=== PATIENT | female | born 1990 | race Caucasian/White ===

== ENCOUNTER 2019-12-06 10:53 | Emergency (ER) | payer OTHER ==
[~2019-12-06] VITALS: Ht 165.1 cm; Wt 72.8 kg
[2019-12-06 12:15] LABS: BASO % 1 % (0-3); EOS # 0.1 x10^3/uL (0.0-0.7); EOS % 1 % (0-3); HEMATOCRIT 41.1 % (36.0-47.0); HEMOGLOBIN 13.8 g/dL (12.0-15.5); LYMPH # 2.2 x10^3/uL (1.0-4.8); LYMPH % 29 % (24-48); MEAN CORPUSCULAR HEMOGLOBIN 30 pg (25-35); MEAN CORPUSCULAR HGB CONC 34 g/dL (31-37); MEAN CORPUSCULAR VOLUME 88 fL (79-100); MONO # 0.5 x10^3/uL (0.0-1.1); MONO % 7 % (0-9); NEUT # 4.8 x10^3/uL (1.8-7.7); NEUT % 63 % (31-73); PLATELET COUNT 274 x10^3/uL (140-400); RED BLOOD COUNT 4.65 x10^6/uL (3.50-5.40); RED CELL DISTRIBUTION WIDTH 13.3 % (11.5-14.5); WHITE BLOOD COUNT 7.6 x10^3/uL (4.0-11.0)
[2019-12-06 12:22] LABS: BILIRUBIN,URINE NEGATIVE (NEG); CLARITY,URINE CLEAR; COLOR,URINE YELLOW; NITRITE,URINE NEGATIVE (NEG); PH,URINE 6.5; PROTEIN,URINE NEGATIVE (NEG-TRACE)
[2019-12-06 12:24] LABS: CALCIUM 9.4 mg/dL (8.5-10.1); CREATININE 0.7 mg/dL (0.6-1.0); GFR 100.4; POTASSIUM 4.1 mmol/L (3.5-5.1)
[2019-12-06 12:29] LABS: PROTHROMBIN TIME PATIENT 13.3 SEC (11.7-14.0)
[2019-12-06 12:31] LABS: ALBUMIN/GLOBULIN RATIO 1.3 (1.0-1.7); TOTAL BILIRUBIN 0.7 mg/dL (0.2-1.0); TOTAL PROTEIN 7.2 g/dL (6.4-8.2)
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
[2019-12-06 12:42] LABS: BACTERIA,URINE 0 /HPF (0-FEW); SQUAMOUS EPITHELIAL CELL,UR OCC /LPF; WBC,URINE 0 /HPF (0-4)
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
[2019-12-06] MEDS: ONDANSETRON PF 4 MG/2 ML VIAL. IV ONE (13:20)
[2019-12-06] MEDS: MORPHINE SULFATE 2 MG/ML VIAL. IV/SQ PRN (13:20)
[2019-12-06 13:24] VITALS: BP 111/73
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
[2019-12-06 14:10] LABS: BARBITURATES NEG (NEG); BENZODIAZEPINES NEG (NEG); CANNABINOIDS POS (NEG); COCAINE NEG (NEG); METHADONE NEG (NEG); OPIATES NEG (NEG); PHENCYCLIDINE NEG (NEG)
[2019-12-06 14:12] LABS: AMPHETAMINE/METHAMPHETAMINE NEG (NEG)
== END 2019-12-06 14:11 | disposition home or self-care (01) ==
LOC: ER 10:53
DX: S13.4XXA Sprain of ligaments of cervical spine, initial encounter (principal); M25.552 Pain in left hip; M79.604 Pain in right leg; Z90.89 Acquired absence of other organs; Z98.890 Other specified postprocedural states; V89.2XXA Person injured in unspecified motor-vehicle accident, traffic, initial encounter; Y93.89 Activity, other specified; Y92.413 State road as the place of occurrence of the external cause; Y99.8 Other external cause status
CPT/HCPCS: 36415; 70450; 71046; 72125; 72128; 72131; 73521; 73552; 73590; 73630; 80053; 80307; 81001; 81025; 85025; 85610; 85730; 86850; 86900; 86901; 99285; G0480

== ENCOUNTER 2021-05-07 22:28 | Observation (INO) | payer OTHER ==
[~2021-05-07] VITALS: Ht 165.1 cm; Wt 88.6 kg
[2021-05-07 23:43] LABS: BILIRUBIN,URINE NEGATIVE (NEG); CLARITY,URINE CLEAR; COLOR,URINE YELLOW; NITRITE,URINE NEGATIVE (NEG); PROTEIN,URINE NEGATIVE (NEG-TRACE)
[2021-05-07] MEDS ORDERED: CONTRAST GIVEN. MC PRN (23:45)
[2021-05-07 23:51] LABS: BACTERIA,URINE FEW /HPF (0-FEW)
[2021-05-08 00:05] LABS: BASO # 0.1 x10^3/uL (0.0-0.2); BASO % 0 % (0-3); EOS # 0.1 x10^3/uL (0.0-0.7); EOS % 1 % (0-3); HEMATOCRIT 39.6 % (36.0-47.0); HEMOGLOBIN 13.7 g/dL (12.0-15.5); LYMPH # 1.8 x10^3/uL (1.0-4.8); LYMPH % 10 % (24-48); MEAN CORPUSCULAR HEMOGLOBIN 29 pg (25-35); MEAN CORPUSCULAR HGB CONC 35 g/dL (31-37); MEAN CORPUSCULAR VOLUME 83 fL (79-100); MONO # 0.8 x10^3/uL (0.0-1.1); MONO % 5 % (0-9); NEUT # 14.4 x10^3/uL (1.8-7.7); NEUT % 84 % (31-73); PLATELET COUNT 316 x10^3/uL (140-400); RED BLOOD COUNT 4.76 x10^6/uL (3.50-5.40); RED CELL DISTRIBUTION WIDTH 13.4 % (11.5-14.5); WHITE BLOOD COUNT 17.2 x10^3/uL (4.0-11.0)
--- NOTE | 2021-05-08 00:06 | PHYS DOC ---
Past Medical History Past Medical History: No Pertinent History Past Surgical History: , Tonsillectomy, Other Additional Past Surgical Histo: adenoidectomy Smoking Status: Never Smoker Alcohol Use: None General Adult EDM: Chief Complaint: ABDOMINAL PAIN HPI: HPI: Patient is a 30 year old female presents with a chief complaint of right sided abdominal pain. Patient states abdominal pain started this evening. Pain located in the right lower quadrant. Patient rates the pain an 8 out of 10. She has associated nausea but has not vomited. Patient is on Depo. Review of Systems: Review of Systems: Review of systems: Constitutional symptoms- No fever, no chills. Eyes- No Discharge, No Visual Loss Respiratory symptoms- No shortness of breath, No wheezing, No Dyspnea on Exertion Cardiovascular Systems; No chest pain, No Palpitations, No syncope Gastrointestinal symptoms: Positive abdominal pain, Positive nausea, no vomiting or diarrhea. Genitourinary symptoms: No dysuria. Musculoskeletal symptoms: No back pain No extremity pain. NEUROLOGICAL Symptoms: No headache, no generalized weakness; No focal Weakness Skin: No rash. Heart Score: C/O Chest Pain: N/A Risk Factors: Risk Factors: DM, Current or recent (<one month) smoker, HTN, HLP, family history of CAD, obesity. Risk Scores: Score 0 - 3: 2.5% MACE over next 6 weeks - Discharge Home Score 4 - 6: 20.3% MACE over next 6 weeks - Admit for Clinical Observation Score 7 - 10: 72.7% MACE over next 6 weeks - Early Invasive Strategies Current Medications: Current Medications Medications (Trade) Dose Ordered Sig/Amber Start Time Stop Time Status Last Admin Dose Admin Info (CONTRAST GIVEN -- Rx MONITORING) 1 each PRN DAILY PRN 05/07/21 23:45 05/09/21 23:44 Iohexol (Omnipaque 300 Mg/ml) 75 ml 1X ONCE 05/08/21 00:00 05/08/21 00:01 DC Ondansetron HCl (Zofran) 4 mg 1X ONCE 05/08/21 00:30 05/08/21 00:31 Sodium Chloride 1,000 ml @ 1,000 mls/hr 1X ONCE 05/08/21 00:30 05/08/21 01:29 Allergies: Allergies: Allergies Coded Allergies Type Severity Reaction Last Updated Verified hydrocodone Allergy Intermediate Hives 05/07/21 Yes Physical Exam: PE: General: alert, no acute distress. Skin: warm, dry and intact. HENT: bilateral external ears normal, oropharynx moist, nose normal. Head:: Normocephalic, atraumatic. Neck: Trachea midline. Eyes: EOMI, Normal conjunctiva, No drainage CARDIOVASCULAR: Regular rate and rhythm RESPIRATORY: No respiratory distress Back: Full range of motion. Skin: Warm, dry, no erythema, no rash. MUSCULOSKELETAL: Full range of motion of bilateral upper and lower extremities. GASTROINTESTINAL: Abdomen soft Eddie palpation right lower quadrant NEUROLOGICAL: Alert and noted to person, place and time. No neurological deficits observed Psychiatric: Cooperative. Normal judgment Current Patient Data: Labs: Laboratory Tests Test 05/07/21 22:59 Urine Collection Type Unknown Urine Color Yellow Urine Clarity Clear Urine pH 6.0 (<5.0-8.0) Urine Specific [place] >=1.030 (1.000-1.030) Urine Protein Negative mg/dL (NEG-TRACE) Urine Glucose (UA) Negative mg/dL (NEG) Urine Ketones (Stick) Trace mg/dL (NEG) Urine Blood Moderate (NEG) Urine Nitrite Negative (NEG) Urine Bilirubin Negative (NEG) Urine Urobilinogen Dipstick 1.0 mg/dL (0.2 mg/dL) Urine Leukocyte Esterase Negative (NEG) Urine RBC 3-5 /HPF (0-2) Urine WBC 1-4 /HPF (0-4) Urine Squamous Epithelial Cells Many /LPF Urine Bacteria Few /HPF (0-FEW) Urine Mucus Marked /LPF POC Urine HCG, Qualitative Hcg negative (Negative) Vital Signs: Vital Signs Date Time Temp Pulse Resp B/P (MAP) Pulse Ox O2 Delivery O2 Flow Rate FiO2 05/07/21 22:45 98.9 83 20 146/84 (86) 99 Room Air 98.9 EKG: EKG: [] Radiology/Procedures: Radiology/Procedures: []COMPARISON: None. TECHNIQUE: Axial CT images obtained through the abdomen and pelvis with contrast . One or more of the following individualized dose reduction techniques were utilized for this examination: 1. Automated exposure control; 2. Adjustment of the mA and/or kV according to patient size; 3. Use of iterative reconstruction technique. FINDINGS: abdominal aorta is not aneurysmal. No intrahepatic bile duct dilation. Liver prominent in size. No peripancreatic fluid collection. No perisplenic hemorrhage. No hydronephrosis. Urinary bladder is has minimal urine within it at time of exam. Uterus is visualized. Appendix measures approximately 6-7 mm. Definite adjacent inflammatory changes not seen. No dilated loops of bowel to suggest obstruction. Degenerative changes spine. IMPRESSION: * No evidence of bowel obstruction. * The appendix is mildly dilated but there is not definitive adjacent inflamma tory changes at this time. Given the lack of definitive inflammatory changes this does not fulfill all of the CT criteria for appendicitis. Would still correlate with symptoms and lab markers in the region given this dilatation to exclude early appendicitis prior to the development of definitive inflammatory changes. If unclear clinically and further workup options are desired a follow- up CT could BE obtained at a later time to assess for development of inflammation or further increase in size. Course & Med Decision Making: Course & Med Decision Making Pertinent Labs and Imaging studies reviewed. (See chart for details) [] Patient was evaluated for chief complaint. Work-up consisted of laboratory analysis and radiologic imaging. Results reviewed and discussed with patient and family. Patient noted to have elevated white blood cell count- >17. CT imaging performed shows a dilated appendix without secondary signs of acute appendicitis--- early appendicitis not excluded. Plan to start patient on antibiotics. Admit to hospitalist with surgery consult. Tosha Disclaimer: Tosha Disclaimer: This electronic medical record was generated, in whole or in part, using a voice recognition dictation system. Departure Departure Impression: Primary Impression: Abdominal pain Disposition: HOME / SELF CARE / HOMELESS Condition: STABLE Referrals: NAS RICHARDSON (PCP) CHEYANNE SANTANA DO May 08, 2021 00:06
[2021-05-08 00:15] LABS: CALCIUM 9.3 mg/dL (8.5-10.1); CREATININE 0.8 mg/dL (0.6-1.0); GFR 85.4; POTASSIUM 3.3 mmol/L (3.5-5.1)
[2021-05-08 00:21] LABS: ALBUMIN 3.8 g/dL (3.4-5.0); TOTAL BILIRUBIN 0.5 mg/dL (0.2-1.0); TOTAL PROTEIN 7.6 g/dL (6.4-8.2)
[2021-05-08 00:28] LABS: % BANDS 1 % (0-9); % EOS 1 % (0-5); % LYMPHS 10 % (24-48); % MONOS 2 % (0-10); % SEGS 86 % (35-66); PLT ESTIMATE ADEQUATE (ADEQUATE)
[2021-05-08] MEDS ORDERED: IV NORMAL SALINE 1000ML BAG 1,000 ML IV ONE (00:30)
[2021-05-08] MEDS ORDERED: ONDANSETRON PF 4 MG/2 ML VIAL. IVP ONE (00:30)
[2021-05-08] MEDS ORDERED: KETOROLAC 30 MG/ML VIAL. ONE (00:32)
[2021-05-08] MEDS ORDERED: IOHEXOL 300 MG/ML 100ML VIAL. IV ONE ×2 (01:00)
[2021-05-08] MEDS ORDERED: KETOROLAC 30 MG/ML VIAL. IVP ONE ×2 (01:00→05:30)
--- NOTE | 2021-05-08 01:09 | RAD ---
INDICATION: Reason: abd pain right sided / Spl. Instructions: [id number] / History: . COMPARISON: None. TECHNIQUE: Axial CT images obtained through the abdomen and pelvis with contrast . One or more of the following individualized dose reduction techniques were utilized for this examinat ion: 1. Automated exposure control; 2. Adjustment of the mA and/or kV according to patient size; 3 . Use of iterative reconstruction technique. FINDINGS: abdominal aorta is not aneurysmal. No intrahepatic bile duct dilation. Liver prominent in size. No peripancreatic fluid collection. No perisplenic hemorrhage. No hydronephrosis. Urinary bladder is has minimal urine within it at time of exam. Uterus is visualized. Appendix measures approximately 6-7 mm. Definite adjacent inflammatory changes not seen. No dilated loops of bowel to suggest obstruction. Degenerative changes spine. IMPRESSION: * No evidence of bowel obstruction. * The appendix is mildly dilated but there is not definitive adjacent inflammatory changes at this t kalyn. Given the lack of definitive inflammatory changes this does not fulfill all of the CT criteria f or appendicitis. Would still correlate with symptoms and lab markers in the region given this dilatat ion to exclude early appendicitis prior to the development of definitive inflammatory changes. If unc lear clinically and further workup options are desired a follow-up CT could BE obtained at a later ti me to assess for development of inflammation or further increase in size. Electronically signed by: Lucas Galvez MD (05/08/2021 1:07 AM) [id number]
[2021-05-08] MEDS ORDERED: ONDANSETRON PF 4 MG/2 ML VIAL. IV PRN (02:45)
[2021-05-08] MEDS ORDERED: PIPERACILLIN/TAZOBACTAM 4.5 GM in IV NORMAL SALINE 100ML 100 ML IV ONE (03:00)
[2021-05-08 03:51] VITALS: BP 119/68
[2021-05-08] MEDS: fentaNYL PF VIAL 100 MCG/2 ML VIAL IVP PRN ×2 (05:46→09:34)
[2021-05-08] MEDS ORDERED: SENNOSIDES 8.6 MG TABLET PO PRN (06:45)
[2021-05-08] MEDS ORDERED: MORPHINE SULFATE 2 MG/ML INJ. IV PRN (06:45)
[2021-05-08] MEDS ORDERED: DOCUSATE SODIUM 100 MG CAPSULE. PO PRN (06:45)
[2021-05-08] MEDS ORDERED: KETOROLAC 30 MG/ML VIAL. IVP PRN (06:45)
[2021-05-08] MEDS ORDERED: DEXTROSE 50% 25 GM / 50ML DISP.SYRIN. IV PRN (06:45)
[2021-05-08] MEDS ORDERED: ONDANSETRON PF 4 MG/2 ML VIAL. IVP PRN (06:45)
[2021-05-08] MEDS ORDERED: ACETAMINOPHEN 325 MG TABLET. PO PRN (06:45)
[2021-05-08] MEDS ORDERED: MORPHINE SULFATE 2 MG/ML INJ. IVP PRN ×2 (06:45→09:00)
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
--- NOTE | 2021-05-08 06:57 | NUR ---
Per pharmacy, pt to pump and dump breastmilk for 24 hours post last Fentanyl dose. Pt acknowledges understanding.
[2021-05-08 07:00] VITALS: BP 117/68
[2021-05-08] MEDS: IV NORMAL SALINE 1000ML BAG 1,000 ML IV SCH ×2 (07:20→16:56)
[2021-05-08] MEDS ORDERED: HYDROmorphone 2 MG/ML VIAL IVP PRN ×2 (07:30→09:00)
[2021-05-08] MEDS ORDERED: PROCHLORPERAZINE 10 MG/2 ML VIAL. IVP PRN ×2 (07:30→09:00)
[2021-05-08] MEDS ORDERED: fentaNYL PF VIAL 100 MCG/2 ML VIAL IVP PRN ×4 (07:30→09:00)
[2021-05-08] MEDS ORDERED: IV RINGERS,LACTATED 1000ML 1,000 ML IV SCH ×2 (07:30→09:00)
[2021-05-08] MEDS ORDERED: ACETAMINOPHEN/CODEINE 300/30MG TABLET. PO PRN (08:00)
[2021-05-08] MEDS ORDERED: cefOXitin SODIUM IV Push 1 GM VIAL. IVP PRN (08:45)
--- NOTE | 2021-05-08 08:47 | PDOC2 ---
CONSULT Date of Consult Date of Consult DATE: 05/08/21 TIME: 08:43 Reason for Consult Reason for Consult: RLQ pain Referring Physician Referring Physician: ER Identification/Chief Complaint Chief Complaint abdominal pain Source Source: Chart review, Patient History of Present Illness Reason for Visit: Yesterday started feeling unwell. Developed RLQ pain with nausea. Maybe some diarrhea, however has loose stools regularly. No similar pain in past. Pain aggravated with movement Past Medical History Past Medical History ADHD Past Surgical History Past Surgical History: (7 months ago), Tonsillectomy Family History Family History: Other (noncontributory to current illness ) Social History No ALCOHOL: none Drugs: None Lives: with Family Current Problem List Problem List Problems Medical Problems: (1) Abdominal pain Status: Acute Current Medications Current Medications Current Medications Iohexol (Omnipaque 300 Mg/ml) 75 ml 1X ONCE IV Last administered on 05/08/21at 00:22; Start 05/08/21 at 00:00; Stop 05/08/21 at 00:01; Status DC Info (CONTRAST GIVEN -- Rx MONITORING) 1 each PRN DAILY PRN MC SEE COMMENTS; Start 05/07/21 at 23:45; Stop 05/09/21 at 23:44 Ondansetron HCl (Zofran) 4 mg 1X ONCE IVP Last administered on 05/08/21at 00:05; Start 05/08/21 at 00:30; Stop 05/08/21 at 00:31; Status DC Sodium Chloride 1,000 ml @ 1,000 mls/hr 1X ONCE IV Last administered on 05/08/21at 00:03; Start 05/08/21 at 00:30; Stop 05/08/21 at 01:29; Status DC Iohexol (Omnipaque 300 Mg/ml) 75 ml 1X ONCE IV ; Start 05/08/21 at 01:00; Stop 05/08/21 at 01:01; Status DC Ketorolac Tromethamine (Toradol 30mg Vial) 30 mg 1X ONCE IVP Last administered on 05/08/21at 00:40; Start 05/08/21 at 01:00; Stop 05/08/21 at 08:07; Status DC Ketorolac Tromethamine (Toradol 30mg Vial) 30 mg STK-MED ONCE .ROUTE ; Start 05/08/21 at 00:32; Stop 05/08/21 at 00:33; Status DC Piperacillin Sod/ Tazobactam Sod 4.5 gm/Sodium Chloride 100 ml @ 200 mls/hr 1X ONCE IV Last administered on 05/08/21at 02:58; Start 05/08/21 at 03:00; Stop 05/08/21 at 03:29; Status DC Ondansetron HCl (Zofran) 4 mg PRN Q8HRS PRN IV NAUSEA/VOMITING 1ST CHOICE; Start 05/08/21 at 02:45; Stop 05/08/21 at 06:52; Status DC Ketorolac Tromethamine (Toradol 30mg Vial) 30 mg 1X ONCE IVP ; Start 05/08/21 at 05:30; Stop 05/08/21 at 05:32; Status DC Fentanyl Citrate (Fentanyl 2ml Vial) 50 mcg PRN Q3HRS PRN IVP SEVERE PAIN 7-10 Last administered on 05/08/21at 05:46; Start 05/08/21 at 05:30 Sennosides (Senna) 17.2 mg PRN BID PRN PO CONSTIPATION 1ST CHOICE; Start 05/08/21 at 06:45 Docusate Sodium (Colace) 100 mg PRN DAILY PRN PO HARD STOOLS; Start 05/08/21 at 06:45 Ondansetron HCl (Zofran) 4 mg PRN Q6HRS PRN IVP NAUSEA/VOMITING 1ST CHOICE; Start 05/08/21 at 06:45 Dextrose (Dextrose 50%-Water Syringe) 12.5 gm PRN Q15MIN PRN IV SEE COMMENTS; Start 05/08/21 at 06:45 Sodium Chloride 1,000 ml @ 100 mls/hr Q10H IV Last administered on 05/08/21at 07:20; Start 05/08/21 at 06:45 Acetaminophen (Tylenol) 650 mg PRN Q4HRS PRN PO TEMP OVER 100.4F OR MILD PAIN; Start 05/08/21 at 06:45 Morphine Sulfate (Morphine Sulfate) 1 mg PRN Q1HR PRN IV MODERATE PAIN 4-6; Start 05/08/21 at 06:45 Morphine Sulfate (Morphine Sulfate) 2 mg PRN Q2HR PRN IVP SEVERE PAIN 7-10; Start 05/08/21 at 06:45; Stop 05/09/21 at 06:44 Ketorolac Tromethamine (Toradol 30mg Vial) 30 mg PRN Q6HRS PRN IVP INFLAMMATION; Start 05/08/21 at 06:45; Stop 05/08/21 at 08:07; Status DC Fentanyl Citrate (Fentanyl 2ml Vial) 25 mcg PRN Q5MIN PRN IVP MILD PAIN 1-3; Start 05/08/21 at 07:30; Stop 05/08/21 at 19:00 Fentanyl Citrate (Fentanyl 2ml Vial) 50 mcg PRN Q5MIN PRN IVP MODERATE PAIN 4- 6; Start 05/08/21 at 07:30; Stop 05/08/21 at 19:00 Morphine Sulfate (Morphine Sulfate) 1 mg PRN Q10MIN PRN IVP SEVERE PAIN 7-10; Start 05/08/21 at 07:30; Stop 05/08/21 at 19:00 Ringer's Solution 1,000 ml @ 30 mls/hr Q24H IV ; Start 05/08/21 at 07:30; Stop 05/08/21 at 19:29 Hydromorphone HCl (Dilaudid) 0.5 mg PRN Q10MIN PRN IVP SEVERE PAIN 7-10, 2nd CHOICE; Start 05/08/21 at 07:30; Stop 05/08/21 at 19:00 Prochlorperazine Edisylate (Compazine) 5 mg PACU PRN PRN IVP NAUSEA, MRX1; Start 05/08/21 at 07:30; Stop 05/08/21 at 19:00 Acetaminophen/ Codeine Phosphate (Tylenol #3) 1 tab PRN Q6HRS PRN PO MODERATE TO SEVERE PAIN; Start 05/08/21 at 08:00 Active Scripts Active Reported No Known Medications Prior To Admisstion (Info) Each 1 Each DAILY Allergies Allergies: Coded Allergies: hydrocodone (Verified Allergy, Intermediate, Hives, 05/07/21) ROS General: No: Chills, Other (fevers ) PSYCHOLOGICAL ROS: No: Anxiety, Depression Eyes: No Blurry vision, No Double vision HEENT: No: Sore Throat Hematological and Lymphatic: No: Bleeding Problems, Blood Clots Respiratory: No: Cough, Shortness of breath Cardiovascular: No Chest Pain, No Palpitations Gastrointestinal: Yes Other (see hpi) Genitourinary: No Dysuria, No Retention Musculoskeletal: No Joint Pain, No Muscle Pain Neurological: No Impaired Coord/balance, No Numbness/Tingling Skin: No Pruritus, No Rash Physical Exam General: Alert, Oriented X3 HEENT: Atraumatic, PERRLA Lungs: Clear to auscultation, Normal air movement Heart: Regular rate, Normal S1, Normal S2 Abdomen: Soft, Other (ND, RLQ TTP, + rovsing ) Extremities: No clubbing, No cyanosis Skin: No rashes, No breakdown Neuro: Normal gait, Normal speech Psych/Mental Status: Mental status NL, Mood NL MUSCULOSKELETAL: No deformity, No swelling Vitals VITALS Vital Signs Date Time Temp Pulse Resp B/P (MAP) Pulse Ox O2 Delivery O2 Flow Rate FiO2 05/08/21 08:00 Room Air 05/08/21 07:00 98.0 73 18 117/68 (84) 95 98.0 Labs Labs Laboratory Tests Test 05/07/21 22:59 05/07/21 23:55 05/08/21 06:01 Urine Collection Type Unknown Urine Color Yellow Urine Clarity Clear Urine pH 6.0 (<5.0-8.0) Urine Specific [place] >=1.030 (1.000-1.030) Urine Protein Negative mg/dL (NEG-TRACE) Urine Glucose (UA) Negative mg/dL (NEG) Urine Ketones (Stick) Trace mg/dL (NEG) Urine Blood Moderate (NEG) Urine Nitrite Negative (NEG) Urine Bilirubin Negative (NEG) Urine Urobilinogen Dipstick 1.0 mg/dL (0.2 mg/dL) Urine Leukocyte Esterase Negative (NEG) Urine RBC 3-5 /HPF (0-2) Urine WBC 1-4 /HPF (0-4) Urine Squamous Epithelial Cells Many /LPF Urine Bacteria Few /HPF (0-FEW) Urine Mucus Marked /LPF Bedside Urine HCG, Qualitative Hcg negative (Negative) White Blood Count 17.2 x10^3/uL (4.0-11.0) Red Blood Count 4.76 x10^6/uL (3.50-5.40) Hemoglobin 13.7 g/dL (12.0-15.5) Hematocrit 39.6 % (36.0-47.0) Mean Corpuscular Volume 83 fL (79-100) Mean Corpuscular Hemoglobin 29 pg (25-35) Mean Corpuscular Hemoglobin Concent 35 g/dL (31-37) Red Cell Distribution Width 13.4 % (11.5-14.5) Platelet Count 316 x10^3/uL (140-400) Neutrophils (%) (Auto) 84 % (31-73) Lymphocytes (%) (Auto) 10 % (24-48) Monocytes (%) (Auto) 5 % (0-9) Eosinophils (%) (Auto) 1 % (0-3) Basophils (%) (Auto) 0 % (0-3) Neutrophils # (Auto) 14.4 x10^3/uL (1.8-7.7) Lymphocytes # (Auto) 1.8 x10^3/uL (1.0-4.8) Monocytes # (Auto) 0.8 x10^3/uL (0.0-1.1) Eosinophils # (Auto) 0.1 x10^3/uL (0.0-0.7) Basophils # (Auto) 0.1 x10^3/uL (0.0-0.2) Segmented Neutrophils % 86 % (35-66) Band Neutrophils % 1 % (0-9) Lymphocytes % 10 % (24-48) Monocytes % 2 % (0-10) Eosinophils % 1 % (0-5) Platelet Estimate Adequate (ADEQUATE) Sodium Level 143 mmol/L (136-145) Potassium Level 3.3 mmol/L (3.5-5.1) Chloride Level 107 mmol/L (98-107) Carbon Dioxide Level 24 mmol/L (21-32) Anion Gap 12 (6-14) Blood Urea Nitrogen 11 mg/dL (7-20) Creatinine 0.8 mg/dL (0.6-1.0) Estimated GFR (Cockcroft-Gault) 85.4 BUN/Creatinine Ratio 14 (6-20) Glucose Level 88 mg/dL (70-99) Calcium Level 9.3 mg/dL (8.5-10.1) Total Bilirubin 0.5 mg/dL (0.2-1.0) Aspartate Amino Transf (AST/SGOT) 10 U/L (15-37) Alanine Aminotransferase (ALT/SGPT) 25 U/L (14-59) Alkaline Phosphatase 92 U/L (46-116) Total Protein 7.6 g/dL (6.4-8.2) Albumin 3.8 g/dL (3.4-5.0) Albumin/Globulin Ratio 1.0 (1.0-1.7) Lipase 117 U/L (73-393) SARS-CoV-2 Antigen (Rapid) Negative (NEGATIVE) Laboratory Tests Test 05/07/21 22:59 05/07/21 23:55 05/08/21 06:01 Urine Collection Type Unknown Urine Color Yellow Urine Clarity Clear Urine pH 6.0 (<5.0-8.0) Urine Specific [place] >=1.030 (1.000-1.030) Urine Protein Negative mg/dL (NEG-TRACE) Urine Glucose (UA) Negative mg/dL (NEG) Urine Ketones (Stick) Trace mg/dL (NEG) Urine Blood Moderate (NEG) Urine Nitrite Negative (NEG) Urine Bilirubin Negative (NEG) Urine Urobilinogen Dipstick 1.0 mg/dL (0.2 mg/dL) Urine Leukocyte Esterase Negative (NEG) Urine RBC 3-5 /HPF (0-2) Urine WBC 1-4 /HPF (0-4) Urine Squamous Epithelial Cells Many /LPF Urine Bacteria Few /HPF (0-FEW) Urine Mucus Marked /LPF Bedside Urine HCG, Qualitative Hcg negative (Negative) White Blood Count 17.2 x10^3/uL (4.0-11.0) Red Blood Count 4.76 x10^6/uL (3.50-5.40) Hemoglobin 13.7 g/dL (12.0-15.5) Hematocrit 39.6 % (36.0-47.0) Mean Corpuscular Volume 83 fL (79-100) Mean Corpuscular Hemoglobin 29 pg (25-35) Mean Corpuscular Hemoglobin Concent 35 g/dL (31-37) Red Cell Distribution Width 13.4 % (11.5-14.5) Platelet Count 316 x10^3/uL (140-400) Neutrophils (%) (Auto) 84 % (31-73) Lymphocytes (%) (Auto) 10 % (24-48) Monocytes (%) (Auto) 5 % (0-9) Eosinophils (%) (Auto) 1 % (0-3) Basophils (%) (Auto) 0 % (0-3) Neutrophils # (Auto) 14.4 x10^3/uL (1.8-7.7) Lymphocytes # (Auto) 1.8 x10^3/uL (1.0-4.8) Monocytes # (Auto) 0.8 x10^3/uL (0.0-1.1) Eosinophils # (Auto) 0.1 x10^3/uL (0.0-0.7) Basophils # (Auto) 0.1 x10^3/uL (0.0-0.2) Segmented Neutrophils % 86 % (35-66) Band Neutrophils % 1 % (0-9) Lymphocytes % 10 % (24-48) Monocytes % 2 % (0-10) Eosinophils % 1 % (0-5) Platelet Estimate Adequate (ADEQUATE) Sodium Level 143 mmol/L (136-145) Potassium Level 3.3 mmol/L (3.5-5.1) Chloride Level 107 mmol/L (98-107) Carbon Dioxide Level 24 mmol/L (21-32) Anion Gap 12 (6-14) Blood Urea Nitrogen 11 mg/dL (7-20) Creatinine 0.8 mg/dL (0.6-1.0) Estimated GFR (Cockcroft-Gault) 85.4 BUN/Creatinine Ratio 14 (6-20) Glucose Level 88 mg/dL (70-99) Calcium Level 9.3 mg/dL (8.5-10.1) Total Bilirubin 0.5 mg/dL (0.2-1.0) Aspartate Amino Transf (AST/SGOT) 10 U/L (15-37) Alanine Aminotransferase (ALT/SGPT) 25 U/L (14-59) Alkaline Phosphatase 92 U/L (46-116) Total Protein 7.6 g/dL (6.4-8.2) Albumin 3.8 g/dL (3.4-5.0) Albumin/Globulin Ratio 1.0 (1.0-1.7) Lipase 117 U/L (73-393) SARS-CoV-2 Antigen (Rapid) Negative (NEGATIVE) Assessment/Plan Assessment/Plan appendicitis, suspected with exam, dilated appendix and WBC 17 will plan for lap appy today EDWARD LAMAS APRN May 08, 2021 08:47
[2021-05-08] MEDS: FAMOTIDINE 20 MG/2 ML VIAL IVP SCH ×2 (10:12→20:53)
--- NOTE | 2021-05-08 10:19 | NUR ---
SS following for discharge planning. SS reviewed pt chart and discussed with pt RN. Pt is from home and is currently on room air. Surgery following. Pt having lap appy today at 1200. SS will continue to follow for discharge planning.
[2021-05-08 11:00] VITALS: BP 106/57
[2021-05-08] MEDS ORDERED: BUPIVACAINE-EPI 0.5%-1:200000 MPF 30 ML VIAL. ONE (11:26)
[2021-05-08] MEDS ORDERED: PROPOFOL 10 MG/ML (20ML) VIAL. IV ONE (11:30)
[2021-05-08] MEDS ORDERED: ONDANSETRON PF 4 MG/2 ML VIAL. ONE ×2 (11:30→13:02)
[2021-05-08] MEDS ORDERED: fentaNYL PF VIAL 100 MCG/2 ML VIAL ONE (11:31)
[2021-05-08] MEDS ORDERED: DEXAMETHASONE SOD PHOS 4 MG/ML VIAL ONE ×2 (11:31→13:02)
[2021-05-08] MEDS ORDERED: ROCURONIUM 50 MG/5 ML VIAL. ONE (11:31)
[2021-05-08] MEDS ORDERED: cefOXitin SODIUM IV Push 2 GM VIAL. IVP ONE (12:00)
[2021-05-08] MEDS ORDERED: GLYCOPYRROLATE 1 MG/5 ML VIAL. ONE (13:02)
[2021-05-08] MEDS ORDERED: NEOSTIGMINE METHYLSULFATE 5 MG/5 ML SYRINGE. ONE (13:03)
[2021-05-08] MEDS ORDERED: SEVOFLURANE 61 TO 120 MINUTES. IH ONE (13:04)
[2021-05-08] MEDS ORDERED: MORPHINE SULFATE 2 MG/ML INJ. ONE ×2 (14:00→14:17)
[2021-05-08] MEDS: MORPHINE SULFATE 2 MG/ML INJ. IVP PRN ×3 (14:03→14:29)
[2021-05-08] MEDS ORDERED: PROCHLORPERAZINE 10 MG/2 ML VIAL. ONE (14:10)
[2021-05-08 15:00] VITALS: BP 106/63
--- NOTE | 2021-05-08 15:28 | PDOC4 ---
Operative Note Operative Note Preoperative Diagnosis: Acute Appendicitis Postoperative Diagnosis: Possible acute appendicitis Procedure: Laparoscopic appendectomy Surgeon: Omar Knurling Machine Tender: FATMATA Berkowitz Anesthesia: Gen. EBL: 10 mL Specimen: Appendix to pathology Drains: None Complications: None Indication: The patient is a 30-year-old female who reported to the emergency department with abdominal pain. The evaluation included a CT scan which raise concern for an enlarged appendix however no inflammatory changes were noted. She did have an elevated white count and a concerning exam for appendicitis. The patient was offered surgical treatment with a laparoscopic appendectomy. The risks of surgery were discussed which include bleeding, infection, visceral injury, pain, anesthetic risk, potential need for additional surgery or pro cedure. The patient understands and would like to proceed. Description: The patient was taken to the operating room and placed supine on the operating table. Gen. anesthesia was performed. The abdomen was prepped with ChloraPrep and draped in a standard surgical manner. A supraumbilical incision was made through which a veress needle was inserted and a pneumoperitoneum was created. A visualized 5 mm trocar was inserted and the laparoscope was introduced. In the left lower quadrant a 5 mm trocar was inserted. In the suprapubic region a 12 mm trocar was inserted. The appendix was identified did appear mildly enlarged. There were no clear inflammatory changes or exudate. There were no signs of perforation. Given this we evaluated the remainder of the abdominal cavity laparoscopically. The uterus and both ovaries appeared unremarkable. The visualized small bowel including the terminal ileum were unremarkable. There was no evidence of a Meckel's diverticulum. The cecum and sigmoid colon appeared unremarkable. There was a small amount of physiologic fluid in the pelvis with no other signs of inflammatory change. We proceeded with the appendectomy the mesoappendix was bluntly from the appendix. The mesoappendix was controlled using several clips and it was divided. The appendix was then amputated off the cecum using an Endo ADÁN 45 stapling device. The appendix was then placed in an endoscopic bag and extracted at the suprapubic incision site. The fascia there was closed with 0 Vicryl and infil trated with half percent Marcaine with epinephrine. The RLQ was visualized and the staple line appeared well intact and hemostasis was good. No other abnormalities were identified grossly. The remaining ports were removed and the pneumoperitoneum was relieved. The skin at all incision sites was closed with 4- 0 Monocryl. Steri-Strips and dressings were applied. The patient tolerated the procedure well and was sent to the recovery room in stable condition. At the end of the case all counts were correct. ANTONETTE CORONA MD May 08, 2021 15:28
[2021-05-08] MEDS ORDERED: oxyCODONE/APAP 5/325 1 TAB TABLET PO PRN (15:45)
[2021-05-08] MEDS: oxyCODONE/APAP 5/325 1 TAB TABLET PO PRN (18:32)
[2021-05-08 19:00] VITALS: BP 114/68
[2021-05-08 23:00] VITALS: BP 113/71
[2021-05-09 03:00] VITALS: BP 131/68
[2021-05-09 04:53] LABS: BASO % 0 % (0-3); EOS % 0 % (0-3); HEMATOCRIT 35.2 % (36.0-47.0); HEMOGLOBIN 12.2 g/dL (12.0-15.5); LYMPH # 2.2 x10^3/uL (1.0-4.8); LYMPH % 21 % (24-48); MEAN CORPUSCULAR HEMOGLOBIN 29 pg (25-35); MEAN CORPUSCULAR HGB CONC 35 g/dL (31-37); MEAN CORPUSCULAR VOLUME 84 fL (79-100); MONO # 0.5 x10^3/uL (0.0-1.1); MONO % 5 % (0-9); NEUT % 75 % (31-73); PLATELET COUNT 303 x10^3/uL (140-400); RED BLOOD COUNT 4.19 x10^6/uL (3.50-5.40); RED CELL DISTRIBUTION WIDTH 13.2 % (11.5-14.5); WHITE BLOOD COUNT 10.7 x10^3/uL (4.0-11.0)
[2021-05-09 05:13] LABS: CALCIUM 8.5 mg/dL (8.5-10.1); CREATININE 0.7 mg/dL (0.6-1.0); GFR 99.6; MAGNESIUM 2.3 mg/dL (1.8-2.4); PHOSPHORUS 3.9 mg/dL (2.6-4.7); POTASSIUM 3.8 mmol/L (3.5-5.1)
[2021-05-09 07:00] VITALS: BP 106/63
[2021-05-09] MEDS ORDERED: SENN1TAB99 PO (08:28)
[2021-05-09] MEDS ORDERED: OXYC1TAB15 PO (08:28)
--- NOTE | 2021-05-09 08:30 | DISCH ---
DISCHARGE INSTRUCTIONS Condition on Discharge Condition on Discharge: Stable Activity After Discharge Activity Instructions for Disc: Activity as tolerated Lifting Instructions after Dis: Do not lift >10 pounds Exercise Instruction after Dis: Walk 15 min, 3 x per day Driving Instructions after Dis: Do not drive today Weight Bearing Status after Di: Full weight bearing Diet after Discharge Diet after Discharge: Cardiac Checks after Discharge Checks after discharge: Check your Temp as needed Contacting the DR. after DC Call your doctor for: If your condition worsens Follow-Up Follow up with: PCP within 2 weeks of discharge Follow Up With: Surgery within 2 weeks for postop wound check GIL DEAN MD May 09, 2021 08:30
[2021-05-09] MEDS: oxyCODONE/APAP 5/325 1 TAB TABLET PO PRN (09:07)
[2021-05-09] MEDS: FAMOTIDINE 20 MG/2 ML VIAL IVP SCH (09:07)
--- NOTE | 2021-05-09 10:17 | PDOC ---
EDWARD LAMAS HOUSEKEEPING SUPERVISOR HOTEL 05/09/21 1017: SURGICAL PROGRESS NOTE DATE: 05/09/21 TIME: 10:16 Subjective doing well tolerating diet pain managed Vital Signs Vital Signs Date Time Temp Pulse Resp B/P (MAP) Pulse Ox O2 Delivery O2 Flow Rate FiO2 05/09/21 09:07 Room Air 05/09/21 07:00 97.6 75 18 106/63 (77) 97 97.6 05/08/21 13:53 8 I&O Intake and Output 05/09/21 07:00 Intake Total 1400 ml Output Total 130 ml Balance 1270 ml Intake Oral 400 ml IV Total 1000 ml Output Urine Total 120 ml Estimated Blood Loss 10 ml # Voids 4 General: Alert, Oriented X3, Cooperative Abdomen: Soft, Other (lap dressings dry) Labs Laboratory Tests Test 05/07/21 22:59 05/07/21 23:55 05/08/21 06:01 05/08/21 10:19 Urine Collection Type Unknown Urine Color Yellow Urine Clarity Clear Urine pH 6.0 (<5.0-8.0) Urine Specific [place] >=1.030 (1.000-1.030) Urine Protein Negative mg/dL (NEG-TRACE) Urine Glucose (UA) Negative mg/dL (NEG) Urine Ketones (Stick) Trace mg/dL (NEG) Urine Blood Moderate (NEG) Urine Nitrite Negative (NEG) Urine Bilirubin Negative (NEG) Urine Urobilinogen Dipstick 1.0 mg/dL (0.2 mg/dL) Urine Leukocyte Esterase Negative (NEG) Urine RBC 3-5 /HPF (0-2) Urine WBC 1-4 /HPF (0-4) Urine Squamous Epithelial Cells Many /LPF Urine Bacteria Few /HPF (0-FEW) Urine Mucus Marked /LPF Bedside Urine HCG, Qualitative Hcg negative (Negative) White Blood Count 17.2 x10^3/uL (4.0-11.0) Red Blood Count 4.76 x10^6/uL (3.50-5.40) Hemoglobin 13.7 g/dL (12.0-15.5) Hematocrit 39.6 % (36.0-47.0) Mean Corpuscular Volume 83 fL (79-100) Mean Corpuscular Hemoglobin 29 pg (25-35) Mean Corpuscular Hemoglobin Concent 35 g/dL (31-37) Red Cell Distribution Width 13.4 % (11.5-14.5) Platelet Count 316 x10^3/uL (140-400) Neutrophils (%) (Auto) 84 % (31-73) Lymphocytes (%) (Auto) 10 % (24-48) Monocytes (%) (Auto) 5 % (0-9) Eosinophils (%) (Auto) 1 % (0-3) Basophils (%) (Auto) 0 % (0-3) Neutrophils # (Auto) 14.4 x10^3/uL (1.8-7.7) Lymphocytes # (Auto) 1.8 x10^3/uL (1.0-4.8) Monocytes # (Auto) 0.8 x10^3/uL (0.0-1.1) Eosinophils # (Auto) 0.1 x10^3/uL (0.0-0.7) Basophils # (Auto) 0.1 x10^3/uL (0.0-0.2) Segmented Neutrophils % 86 % (35-66) Band Neutrophils % 1 % (0-9) Lymphocytes % 10 % (24-48) Monocytes % 2 % (0-10) Eosinophils % 1 % (0-5) Platelet Estimate Adequate (ADEQUATE) Sodium Level 143 mmol/L (136-145) Potassium Level 3.3 mmol/L (3.5-5.1) Chloride Level 107 mmol/L (98-107) Carbon Dioxide Level 24 mmol/L (21-32) Anion Gap 12 (6-14) Blood Urea Nitrogen 11 mg/dL (7-20) Creatinine 0.8 mg/dL (0.6-1.0) Estimated GFR (Cockcroft-Gault) 85.4 BUN/Creatinine Ratio 14 (6-20) Glucose Level 88 mg/dL (70-99) Calcium Level 9.3 mg/dL (8.5-10.1) Total Bilirubin 0.5 mg/dL (0.2-1.0) Aspartate Amino Transf (AST/SGOT) 10 U/L (15-37) Alanine Aminotransferase (ALT/SGPT) 25 U/L (14-59) Alkaline Phosphatase 92 U/L (46-116) Total Protein 7.6 g/dL (6.4-8.2) Albumin 3.8 g/dL (3.4-5.0) Albumin/Globulin Ratio 1.0 (1.0-1.7) Lipase 117 U/L (73-393) SARS-CoV-2 RNA (ASHLEY) Negative (Negative) SARS-CoV-2 Antigen (Rapid) Negative (NEGATIVE) C-Reactive Protein, Quantitative 22.3 mg/L (0-3.3) Test 05/09/21 04:30 White Blood Count 10.7 x10^3/uL (4.0-11.0) Red Blood Count 4.19 x10^6/uL (3.50-5.40) Hemoglobin 12.2 g/dL (12.0-15.5) Hematocrit 35.2 % (36.0-47.0) Mean Corpuscular Volume 84 fL (79-100) Mean Corpuscular Hemoglobin 29 pg (25-35) Mean Corpuscular Hemoglobin Concent 35 g/dL (31-37) Red Cell Distribution Width 13.2 % (11.5-14.5) Platelet Count 303 x10^3/uL (140-400) Neutrophils (%) (Auto) 75 % (31-73) Lymphocytes (%) (Auto) 21 % (24-48) Monocytes (%) (Auto) 5 % (0-9) Eosinophils (%) (Auto) 0 % (0-3) Basophils (%) (Auto) 0 % (0-3) Neutrophils # (Auto) 8.0 x10^3/uL (1.8-7.7) Lymphocytes # (Auto) 2.2 x10^3/uL (1.0-4.8) Monocytes # (Auto) 0.5 x10^3/uL (0.0-1.1) Eosinophils # (Auto) 0.0 x10^3/uL (0.0-0.7) Basophils # (Auto) 0.0 x10^3/uL (0.0-0.2) Sodium Level 143 mmol/L (136-145) Potassium Level 3.8 mmol/L (3.5-5.1) Chloride Level 109 mmol/L (98-107) Carbon Dioxide Level 21 mmol/L (21-32) Anion Gap 13 (6-14) Blood Urea Nitrogen 6 mg/dL (7-20) Creatinine 0.7 mg/dL (0.6-1.0) Estimated GFR (Cockcroft-Gault) 99.6 Glucose Level 108 mg/dL (70-99) Calcium Level 8.5 mg/dL (8.5-10.1) Phosphorus Level 3.9 mg/dL (2.6-4.7) Magnesium Level 2.3 mg/dL (1.8-2.4) Laboratory Tests Test 05/08/21 10:19 05/09/21 04:30 C-Reactive Protein, Quantitative 22.3 mg/L (0-3.3) White Blood Count 10.7 x10^3/uL (4.0-11.0) Red Blood Count 4.19 x10^6/uL (3.50-5.40) Hemoglobin 12.2 g/dL (12.0-15.5) Hematocrit 35.2 % (36.0-47.0) Mean Corpuscular Volume 84 fL (79-100) Mean Corpuscular Hemoglobin 29 pg (25-35) Mean Corpuscular Hemoglobin Concent 35 g/dL (31-37) Red Cell Distribution Width 13.2 % (11.5-14.5) Platelet Count 303 x10^3/uL (140-400) Neutrophils (%) (Auto) 75 % (31-73) Lymphocytes (%) (Auto) 21 % (24-48) Monocytes (%) (Auto) 5 % (0-9) Eosinophils (%) (Auto) 0 % (0-3) Basophils (%) (Auto) 0 % (0-3) Neutrophils # (Auto) 8.0 x10^3/uL (1.8-7.7) Lymphocytes # (Auto) 2.2 x10^3/uL (1.0-4.8) Monocytes # (Auto) 0.5 x10^3/uL (0.0-1.1) Eosinophils # (Auto) 0.0 x10^3/uL (0.0-0.7) Basophils # (Auto) 0.0 x10^3/uL (0.0-0.2) Sodium Level 143 mmol/L (136-145) Potassium Level 3.8 mmol/L (3.5-5.1) Chloride Level 109 mmol/L (98-107) Carbon Dioxide Level 21 mmol/L (21-32) Anion Gap 13 (6-14) Blood Urea Nitrogen 6 mg/dL (7-20) Creatinine 0.7 mg/dL (0.6-1.0) Estimated GFR (Cockcroft-Gault) 99.6 Glucose Level 108 mg/dL (70-99) Calcium Level 8.5 mg/dL (8.5-10.1) Phosphorus Level 3.9 mg/dL (2.6-4.7) Magnesium Level 2.3 mg/dL (1.8-2.4) Problem List Problems Medical Problems: (1) Abdominal pain Status: Acute Assessment/Plan s/p appy ok to dc home Justicifation of Admission Dx: Justifications for Admission: Justification of Admission Dx: Yes Comments: appendicitis ANTONETTE CORONA MD 05/09/21 1215: SURGICAL PROGRESS NOTE Assessment/Plan Agree with above EDWARD LAMAS HOUSEKEEPING SUPERVISOR HOTEL May 09, 2021 10:17 ANTONETTE CORONA MD May 09, 2021 12:15
--- NOTE | 2021-05-09 11:00 | NUR ---
Discharge Note: Patient was discharged home with self care. Patients IV was discontinued without any complications per MYA. Patients significant other at the bedside at the time of discharge education. Patient was given discharge summary/instructions, follow-ups, and educational material. All of patients new prescriptions were sent to patients preferred pharmacy. Patient did not have any further questions or concerns. Patient was taken down to the main entrance via wheelchair with all personal belongings, accompanied by MYA Maloney, where her significant other was waiting for her to take her home.
--- NOTE | 2021-05-12 14:17 | NUR ---
at 05/08/21 at 0720 Stop time for Normal saline at 1655. Scanned a new bag of Normal Saline at 1656 and stop time of 05/09/21 at 0300.
--- NOTE | 2021-05-13 13:15 | PATHOLOGY ---
[facility] Accession Number: [id number] . 01 Material submitted: . appendix - APPENDIX . 01 Clinical history: . RLQ PAIN LAP APPY ABD PAIN . 02 Diagnosis: Appendix, laparoscopic appendectomy: - Acute appendicitis. (JPM:curry; 05/13/2021) [facility] [place] 05/13/2021 0918 Local . 02 Comment: There is no evidence of rupture. (JPM:curry; 05/13/2021 . 02 Electronically signed: . Krish Campbell MD, Pathologist NPI- [id number] . 01 Gross description: . Fixative: Formalin Labeled: Appendix Appendix length: 7.0 cm Appendix diameter: 0.6-0.8 cm Mesoappendix: 2.5 cm, glistening yellow adipose Proximal margin: Inked black Serosa: Congested pink-woods Cut surface: Dull pink-woods Luminal diameter: 0.3-0.4 cm Perforation: Not present Lesions/abnormalities: No grossly apparent lesions The appendix is entirely submitted A1: Proximal margin (inked black) and distal tip, bisected A2-A4: appendix sequential cross sections A5: Appendix remaining cross section and mesoappendix representation ([facility]; 05/09/2021) J/J 05/09/2021 1729 Local . 02 Pathologist provided ICD-10: K35.80 . 02 CPT . 098042 Specimen Comment: A courtesy copy of this report has been sent to [phone], [phone] Specimen Comment: [id number], , Specimen Comment: Report sent to ,DR DUARTE,DR SANTANA / DR DYLAN Performed at: 01 [facility] [address], [place], [place] [id number] MD Tony Mishra MD Phone: [phone] Performed at: 02 [facility] [address], [place] [id number] MD Krish Campbell MD Phone: [phone]
--- NOTE | 2021-05-13 16:23 | PDOC3 ---
[facility]-Discharge Summary Date of Admission: Date of Admission: May 08, 2021 Date of Discharge: Date of Discharge: May 09, 2021 Discharge Diagnosis: Discharge Diagnosis: Acute appendicitis Hospital Course: Hospital Course: Taken to OR for laparoscopic appendectomy. Tolerated procedure well without any postoperative complications. Ambulating, pain was well controlled, and tolerating diet. The rest of the hospital course was uneventful. Disposition: Disposition/Orders: D/C to Home Activity: Activity: Resume previous activity Diet: Diet: Regular Medications: Home Meds Active Scripts Sennosides/Docusate Sodium (Senna-Docusate Sodium Tablet) 1 Each Tablet, 2 TAB PO BID for constipation for 5 Days, #20 TAB 0 Refills Prov:GIL DEAN MD 05/09/21 Oxycodone/Apap 5-325 (PERCOCET 5-325 MG TABLET ) 1 Each Tablet, 2 TAB PO PRN Q6HRS PRN for SEVERE PAIN for 3 Days, #12 TAB Prov:GIL DEAN MD 05/09/21 Discontinued Reported Medications Info (NO KNOWN MEDICATIONS PRIOR TO ADMISSTION) Each, 1 EACH [facility] DAILY for ., EACH 05/08/21 Scheduled Sennosides/Docusate Sodium (Senna-Docusate Sodium Tablet), 2 TAB PO BID Scheduled PRN Oxycodone/Apap 5-325 (Percocet 5-325 Mg Tablet ), 2 TAB PO PRN Q6HRS PRN for SEVERE PAIN Discontinued Medications Info (No Known Medications Prior To Admisstion), 1 EACH [facility] DAILY, (Reported) Total Time: Total Time: Total time spent was 31 minutes in preparing scripts and discharge planning with SW and RN Patient seen and examined on day of Discharge. Justicifation of Admission Dx: Justifications for Admission: Justification of Admission Dx: Yes GIL DEAN MD May 13, 2021 16:23
== END 2021-05-09 11:05 | disposition home or self-care (01) ==
LOC: ER 22:28 → CVICU 05-08 02:36
PROVIDERS: ADMIT Family Medicine; ATTEND Family Medicine
DX: K35.80 Unspecified acute appendicitis (principal); Z20.822 Contact with and (suspected) exposure to COVID-19; E87.6 Hypokalemia; E66.9 Obesity, unspecified; D72.828 Other elevated white blood cell count; Z98.890 Other specified postprocedural states; Z98.891 History of uterine scar from previous surgery
CPT/HCPCS: 36415; 44970; 74177; 80048; 80053; 81001; 81025; 83690; 83735; 84100; 85007; 85025; 86140; 87426; 88304; 96361; 96365; 96375; 96376; A4314; A4364; A4930; A6219; G0378; J0694; J0780; J1100; J1885; J2270; J2405; J2543; J2704; J2710; J3010; J3490; J7030; Q9967; U0003; U0005; G0379